=== PATIENT | male | born 1935 | race Caucasian/White ===

== ENCOUNTER → 2017-12-11 | Outpatient (CLI) | payer MEDICARE, OTHER ==
[~2017-12-11] MED LIST: ? BP MED; AMLO5 PO; ASPI81EC; AZIT250 PO; CEFP200 PO; CEPH500 PO; CLOB.05TO; DILT120ER; DOCU100 PO; FURO40 PO; Ferrous Sulfat325 M2 PO; HYDCHL25 PO; K-Dur10 MEQ; LOSA50 PO; MAGN84 PO; METO100ER PO; MGO400 MG PO; Micro-K10 MEQ PO; Milk Of Ma800 MG/5 M PO; OMEP20ER PO; Prilosec Otc20 MG PO; SULTRIDS; TAMS.4ER PO; WARF3 PO
[2017-12-11 13:21] LABS: International Normalized Ratio 3.26; Prothrombin Time Results 31.4 Sec (9.7-11.5)
== END | disposition home or self-care (01) ==
LOC: LAB 13:02 → LAB SHORT 13:02
PROVIDERS: Physician Assistant
DX: I82.401 Acute embolism and thrombosis of unspecified deep veins of right lower extremity (principal)
CPT/HCPCS: 85610